=== PATIENT | female | born 1985 | race Caucasian/White ===

== ENCOUNTER → 2019-02-28 08:57 | Day surgery (SDC) | payer OTHER ==
[~2019-02-28 08:57] MED LIST: Acetaminophen TAB* 325 MG PO PRN; Buffered Lidocaine 1% SYRIN* 1 ML/SYRINGE INTRADERM ONE; Dexamethasone IV* 4 MG/ML 1 ML (4 MG) IV SLOW PU ONE; Dexamethasone IV* 4 MG/ML 1 ML (4 MG) ONE; DiMENhydriNATE IV* 50 MG/ML VIAL IV PUSH PRN; Famotidine IV* 10 MG/ML 2 ML (20 mg) IV ONE; Famotidine IV* 10 MG/ML 2 ML (20 mg) ONE; HYDROcodone/ACETAMIN 5-325 MG* 1 TAB ONE; HYDROcodone/ACETAMIN 5-325 MG* 1 TAB PO PRN; Lactated Ringers 1000 ML Bag* 1,000 ML IV SCH; Lidocaine 2% PF * 5 ML VIAL ONE; Lidocaine 2% w/ EPI 1:200,000* 20 ML SDV VIAL ONE; Midazolam* 1 MG/ML 5 ML VIAL (5 MG) ONE; Naloxone* 0.4 MG/ML 1 ML VIAL IV PRN; Ondansetron INJ* 2 MG/ML VIAL ONE; Oxymetazoline 0.05% NASAL SPR* 15 ML BTL ONE; Propofol* 10 MG/ML 20 ML BTL ONE; fentaNYL* 50 MCG/ML 2 ML VIAL (100 MCG VIAL) IV PRN; fentaNYL* 50 MCG/ML 2 ML VIAL (100 MCG VIAL) ONE; oxyCODONE/Acetamin 5/325 MG* TAB PO PRN
[2019-02-28 13:45] VITALS: BP 133/84
--- NOTE | 2019-02-28 16:21 | OP ---
DATE OF OPERATION: 02/28/19 - SDS DATE OF : 83 SURGEON: Adeel Muller M.D. PRE-OP DIAGNOSES: Deviated nasal septum, hypertrophied turbinates, and nasal dyspnea. POST-OP DIAGNOSES: Deviated nasal septum, hypertrophied turbinates, and nasal dyspnea. OPERATIVE PROCEDURE: Septoplasty and SMR of turbinates. BRIEF HISTORY: This is a 33-year-old female with history of nasal dyspnea, elected for surgical management. DESCRIPTION OF PROCEDURE: The patient was taken to the operating room, general anesthesia was given, the patient was intubated with an LMA. Nose was decongested with Afrin-placed pledgets. Lidocaine 2% with epinephrine was infiltrated into the mucosa in both sides. Left hemitransfixion incision was created. Mucoperichondrial flap was elevated. Quadrangular cartilage was disarticulated along the vomer ethmoidal complex and along the maxillary crest posterior portion. The crest and large spur was removed. This allowed the quadrangular cartilage to swing freely. It was scored on the concave surface and placed in the midline. Multiple mattress sutures were then used to secure it in the midline. The hemitransfixion incision was closed. router splints applied, secured with 2-0 silk. Subsequently, submucosal resection was carried out. Small incision was made in both the inferior turbinates. Elevation was carried out, some portion of the submucosal tissue was removed including portion of the small amounts of the bone. The cautery was used for hemostasis. Small nasal dressing was applied. The patient was awakened and sent to recovery room in stable condition. Instrument and sponge count correct. Blood loss minimal. [id number]/[facility] #: [id number] [facility]
== END | disposition home or self-care (01) ==
LOC: OR 08:57
PROVIDERS: ATTEND Otolaryngology
DX: J34.2 Deviated nasal septum (principal); J34.3 Hypertrophy of nasal turbinates; J45.909 Unspecified asthma, uncomplicated; F41.8 Other specified anxiety disorders; K21.9 Gastro-esophageal reflux disease without esophagitis; J32.9 Chronic sinusitis, unspecified; J31.0 Chronic rhinitis; Z72.0 Tobacco use
CPT/HCPCS: 81025; A9270-GY; J1100; J2250; J2405; J2704; J3010

== ENCOUNTER 2019-05-15 11:10 | Emergency (ER) | payer SELFPAY ==
[2019-05-15 11:57] VITALS: BP 125/72
--- NOTE | 2019-05-15 12:18 | UC ---
- HPI Summary HPI Summary: Patient is a 33yo female presenting with needlestick to R 3rd finger this morning at work around 1055. Patient states she was helping during a sclerotherapy procedure and and picked up a used, uncapped needle. Patient notes it bled but has stopped. States that it is currently sore. Denies decreased ROM and sensation. She states that they checked the patient's chart and there was no stated history of HIV. Patient unsure if tetanus UTD. States she washed the hand with soap and water at work. - History of Current Complaint Chief Complaint: UCSkin Stated Complaint: NEEDLE STICK Body Fluid Exposure: Blood - Source Information HIV: No Hepatitis: No - Other Discussed Post-Exposure Prophylaxis (PEP) for HIV: Declined Discussed PEP for Hepatitis-B: Declined Serologic Testing (HIV/HBV) Declined by Patient: No (Must be retained for 90 days, if drawn) PMH/Surg Hx/FS Hx/Imm Hx Previously Healthy: Yes GI/ History: Gastroesophageal Reflux - Surgical History Surgical History: Yes Surgery Procedure, Year, and Place: wisdom teeth removed. other teeth removed. septoplasty with resection Feb 28, 2019 - Social History Occupation: Employed Part-time Alcohol Use: Rare Substance Use Type: Marijuana Substance Use Comment - Amount & Last Used: everyday Smoking Status (MU): Light Every Day Tobacco Smoker Amount Used/How Often: smoked since 17 years old, 1/4 ppd Review of Systems All Other Systems Reviewed And Are Negative: No Constitutional: Positive: Negative Skin: Positive: Other - needlestick to R 3rd finger Respiratory: Positive: Negative Cardiovascular: Positive: Negative Gastrointestinal: Positive: Negative Musculoskeletal: Positive: Negative. Negative: Arthralgia, Decreased ROM, Edema Neurological: Negative: Paresthesia, Numbness Physical Exam Triage Information Reviewed: Yes Appearance: Well-Appearing, No Pain Distress, Well-Nourished Vital Signs: Initial Vital Signs Temp 98.4 F 05/15/19 11:53 Pulse 77 05/15/19 11:53 Resp 18 05/15/19 11:53 BP 125/72 05/15/19 11:53 Pulse Ox 96 05/15/19 11:53 Vital Signs Reviewed: Yes Eyes: Positive: Conjunctiva Clear ENT: Positive: Hearing grossly normal Neck: Positive: Supple Respiratory Exam: Normal Respiratory: Positive: Lungs clear, Normal breath sounds, No respiratory distress Cardiovascular Exam: Normal Cardiovascular: Positive: RRR, Pulses Normal, Brisk Capillary Refill Musculoskeletal Exam: Normal Musculoskeletal: Positive: Strength Intact, ROM Intact, No Edema Neurological Exam: Other - sensation grossly intact Neurological: Positive: Alert Psychological: Positive: Age Appropriate Behavior Skin: Positive: Other - pinpoint nahomy on R 3rd finger where needle punctured skin. no active bleeding. no erythema or ecchymosis. Needlestick Course/Dx - Course Course Of Treatment: Patient provided phone number for her place of work. I called and spoke with rating officer there. She called the patient I was involved with the incident to denied ever being positive for HIV. The patient's chart also does not have any history of HIV. I spoke with the patient who declined PEP after being informed that the patient denies being HIV positive. She verbally consented to HIV, hep B, hep C testing. She also received tetanus booster. I instructed the patient to follow up with Dr. Rosado at [facility] as soon as possible to find out when she should be reevaluated. Patient voiced understanding and agreed with the treatment plan. I also discussed this patient with Dr. Soto who agreed with the plan. - Diagnoses Provider Diagnoses: Needlestick injury with contaminated needle Discharge ED - Sign-Out/Discharge Documenting (check all that apply): Patient Departure All imaging exams completed and their final reports reviewed: No Studies - Discharge Plan Condition: Stable Disposition: HOME Patient Education Materials: Diphtheria/Acellular Pertussis/Tetanus Booster Vaccine (By injection), Needle Stick Injuries (ED) Referrals: Alex Rosado MD [Medical Doctor] - As Soon As Possible Dennis Leon NP [Primary Care Provider] - As Soon As Possible Additional Instructions: As discussed, you received baseline testing for HIV, Hep B, and Hep C today. Call the Dr. Rosado at [facility] listed below to find out when you should follow up. Return or go to the Emergency Room if you notice any redness, worsening pain, or drainage from the site of injury. - Billing Disposition and Condition Condition: STABLE Disposition: Home
[2019-05-15] MEDS ORDERED: Tetan/Diph/Pertus SYR(Tdap)* 0.5 ML SYR(BOOSTRIX) use SYR contains LATEX IM ONE (12:50)
--- OUTSIDE RECORDS SUMMARY | 2019-05-15 16:44 | XMS REPORT | Continuity of Care Document ---
:1985 External Reference #:[id number] Author Name Adeel Muller MD Address [address] [place] [address] Care Team Providers Name Role Phone Dennis Leon NP - Nurse Practitioner Care Team Information Construction Rep [phone] Problems Active Problems Provider Date Posterior rhinorrhea Adeel Muller MD Onset: 10/05/2018 Chronic rhinitis Adeel Muller MD Onset: 10/05/2018 Gastroesophageal reflux disease Adeel Muller MD Onset: 10/05/2018 Hypertrophy of nasal turbinates Adeel Muller MD Onset: 12/07/2018 Deviated nasal septum Adeel Muller MD Onset: 12/07/2018 Chronic sinusitis Adeel Muller MD Onset: 12/07/2018 Social History Type Date Description Comments Sex Unknown Tobacco Use Start: Unknown Current Smoker 1/4 Pack Daily Tobacco Use Start: Unknown Never Smoked Cigars Tobacco Use Start: Unknown Never Smoked A Pipe Smokeless Tobacco Never Used Smokeless Tobacco ETOH Use Currently rarely consumes alcohol Tobacco Use Start: Unknown Patient was a smoker, current status is unknown Smoking Status Reviewed: 02/26/19 Patient was a smoker, current status is unknown Allergies, Adverse Reactions, Alerts Active Allergies Reaction Severity Comments Date Relpax Lock jaw, stiff neck 10/05/2018 Medications Active Medications SIG Qnty Indications Ordering Provider Date Lexapro 1 and 1/2 tabs Unknown 10mg Tablets by mouth every day Bupropion Hydrochloride 1 tab daily Unknown ER (SR) 150mg Tablets ER 12HR Xanax 1 tab by mouth Unknown 0.5mg Tablets every 8 hours as needed Cetirizine HCL 1 by mouth every Unknown 10mg day Chewtabs Omeprazole one by mouth one Unknown 40mg Capsules DR per day Albuterol Sulfate HFA Carolyn PATIENT REGISTRAR, Dennis 108(90Base) mcg/Act Aerosol Claritin 1 by mouth every Unknown 10mg Capsules day Immunizations Description No Information Available Vital Signs Date Vital Result Comment 04/19/2019 3:47pm Weight 183.00 lb Weight 83.009 kg Height 66 inches 5'6" Height in cm's 167.6 cm BMI (Body Mass Index) 29.5 kg/m2 02/26/2019 2:04pm BP Systolic 139 mmHg BP Diastolic 89 mmHg Heart Rate 81 /min Respiratory Rate 18 /min Body Temperature 98.2 F Weight 183.00 lb Weight 83.009 kg Height 66 inches 5'6" Height in cm's 167.6 cm BMI (Body Mass Index) 29.5 kg/m2 Results Description No Information Available Procedures Date Code Description Status 02/28/2019 03018 Septoplasty Completed 02/28/2019 83120 Submuccous Resection Turbinate, Partial Or Complete Completed Medical Devices Description No Information Available Encounters Type Date Location Provider Dx Diagnosis Office Visit 02/26/2019 [place] Louisa Ricardo J34.3 Hypertrophy of 2:00p 06/13/07 PA-C nasal turbinates J34.2 Deviated nasal septum J30.89 Other allergic rhinitis Office Visit 02/16/2019 8:30a [place] 06/13/07 Louisa Farooq34.3 Hypertrophy of FADI Ricardo nasal turbinates J34.2 Deviated nasal septum J31.0 Chronic rhinitis Office Visit 12/22/2018 [place] Adeel Muller J34.3 Hypertrophy of 9:15a 06/13/07 nasal turbinates J34.2 Deviated nasal septum J31.0 Chronic rhinitis Office Visit 12/07/2018 3:45p [place] 06/13/07 Adeel Muller J31.0 Chronic MD rhinitis J34.3 Hypertrophy of nasal turbinates J34.2 Deviated nasal septum J32.9 Chronic sinusitis, unspecified Assessments Date Code Description Provider 04/19/2019 J34.2 Deviated nasal septum Adeel Muller MD 03/08/2019 J34.2 Deviated nasal septum Ruparelia, Adeel VORA 02/28/2019 J34.3 Hypertrophy of nasal turbinates Rutorsten, Adeel VORA 02/28/2019 J34.2 Deviated nasal septum Maudeelia, Adeel VORA 02/26/2019 J34.3 Hypertrophy of nasal turbinates Louisa Ricardo PA-C 02/26/2019 J34.2 Deviated nasal septum Louisa Ricardo PA-C 02/26/2019 J30.89 Other allergic rhinitis [place]ARR[place] CullenC 02/16/2019 J34.3 Hypertrophy of nasal turbinates Louisa Ricardo PA-C 02/16/2019 J34.2 Deviated nasal septum Louisa Ricardo PA-C 02/16/2019 J31.0 Chronic rhinitis [place] CullenC 12/22/2018 J34.3 Hypertrophy of nasal turbinates Renzo, Adeel VORA 12/22/2018 J34.2 Deviated nasal septum Renzo, Adeel VORA 12/22/2018 J31.0 Chronic rhinitis Renzo, Adeel VORA 12/07/2018 J31.0 Chronic rhinitis Ruparelia, Adeel VORA 12/07/2018 J34.3 Hypertrophy of nasal turbinates Renzo, Adeel VORA 12/07/2018 J34.2 Deviated nasal septum Renzo, Adeel VORA 12/07/2018 J32.9 Chronic sinusitis, unspecified Adeel Muller MD Plan of Treatment 04/19/2019 - Adeel Muller MDJ34.2 Deviated nasal septumComments:Significant improvement, continue saline nasal washes recheck when necessary Functional Status Description No Information Available Mental Status Description No Information Available Referrals Description No Information Available
[2019-05-15 20:38] LABS: Hepatitis B Surface Antigen Nonreactive (Nonreactive)
[2019-05-15 20:55] LABS: Hepatitis B Surface Ab Immune (Immune)
[2019-05-15 20:56] LABS: Hepatitis C Antibody Negative (Negative)
== END 2019-05-15 12:59 | disposition home or self-care (01) ==
LOC: UCEAST 11:10
DX: S69.91XA Unspecified injury of right wrist, hand and finger(s), initial encounter (principal); F17.290 Nicotine dependence, other tobacco product, uncomplicated; W46.0XXA Contact with hypodermic needle, initial encounter; Y92.9 Unspecified place or not applicable
CPT/HCPCS: 36415; 86706; 86803; 87340; 90471; 90715; 99211; G0463